=== PATIENT | female | born 1955 | race African-American/Black ===

== ENCOUNTER 2022-08-23 06:24 | Inpatient (IN) | payer OTHER ==
[~2022-08-23] VITALS: Ht 157.5 cm; Wt 54.0 kg
--- NOTE | 2022-08-23 06:27 | NUR ---
P[T. BEING EVALUATED BY DR. SMALL.
[2022-08-23] MEDS ORDERED: MORPHINE SULFATE 4 MG/ML SYR IVP ONE (06:30)
[2022-08-23] MEDS ORDERED: NACL 0.9% 1,000 ML IV ONE ×2 (06:30→09:05)
[2022-08-23] MEDS ORDERED: ONDANSETRON 4 MG/2 ML VIAL IVP ONE (06:30)
[2022-08-23 06:34] VITALS: BP 131/81; PULSE 98; RESP 20; TEMP 98; O2SAT 98
--- NOTE | 2022-08-23 06:36 | NUR ---
PT. BEING TAKEN TO CT IN [facility].
--- NOTE | 2022-08-23 06:37 | NUR ---
PT. PLACED IN BED 09.
[2022-08-23 07:30] LABS: BASOPHILS # (AUTO) 0.1 K/uL (0.00-0.22); EOSINOPHILS # (AUTO) 0.3 K/uL (0-0.4); EOSINOPHILS % (AUTO) 4.3 % (0.0-4.0); HEMATOCRIT 31.4 % (36-48); HEMOGLOBIN 10.1 g/dL (12.0-16.0); LYMPHOCYTES % (AUTO) 12.6 % (20.5-51.1); MEAN CORPUSCULAR HEMOGLOBIN 31 pg (27-31); MEAN CORPUSCULAR HGB CONC 32 g/dL (33-37); MEAN CORPUSCULAR VOLUME 94.9 fL (80-94); MONOCYTES # (AUTO) 0.5 K/uL (0.8-1.0); MONOCYTES % (AUTO) 6.3 % (1.7-9.3); NEUTROPHILS # (AUTO) 5.9 K/uL (1.8-7.7); NEUTROPHILS % (AUTO) 75.8 % (42.2-75.2); PLATELET COUNT (AUTO) 259 K/uL (140-450); RED BLOOD CELL COUNT(AUTO) 3.31 MIL/uL (4.20-5.40); WHITE BLOOD COUNT (AUTO) 7.8 K/uL (4.8-10.8)
[2022-08-23 07:35] LABS: APPEARANCE,URINE CLEAR (CLEAR); BILIRUBIN,URINE NEGATIVE (NEGATIVE); BLOOD, URINE NEGATIVE (NEGATIVE); COLOR,URINE YELLOW (YELLOW); LEUKOCYTE ESTERASE ,URINE NEGATIVE (NEGATIVE); NITRITE, URINE NEGATIVE (NEGATIVE); UGLUCOSE NEGATIVE (NEGATIVE)
[2022-08-23 07:44] LABS: ALBUMIN 3.7 g/dL (3.4-5.0); ANION GAP 12.2 (8-16); CARBON DIOXIDE 27.7 mmol/L (21-32); CREATININE 0.7 mg/dL (0.6-1.3); POTASSIUM 3.9 mmol/L (3.5-5.1); TOTAL BILIRUBIN 0.3 mg/dL (0.0-1.0)
[2022-08-23] MEDS ORDERED: KETOROLAC 30 MG/ML VIAL IVP ONE (07:55)
[2022-08-23] MEDS ORDERED: MAG SULF 2000 MG/WATER PREMIX 50 ML IV PRN (08:00)
[2022-08-23] MEDS ORDERED: AMPICILLIN/SULBACTAM 3 GM in NACL 0.9% 100 ML IV ONE (09:05)
[2022-08-23] MEDS ORDERED: AMPICILLIN/SULBACTAM 3 GM VIAL ONE (09:29)
[2022-08-23] MEDS ORDERED: CHOL200035 PO (10:19)
[2022-08-23] MEDS ORDERED: FLUT1BLS3 INH (10:19)
[2022-08-23] MEDS ORDERED: ACET-2166 PO (10:19)
[2022-08-23] MEDS ORDERED: AMLO-3 PO (10:19)
[2022-08-23] MEDS ORDERED: ALBU90AE IH (10:19)
[2022-08-23] MEDS ORDERED: HYDR-4421 PO (10:19)
[2022-08-23] MEDS ORDERED: HYDROcodone/APAP 5/325 MG 1 TAB TAB PO PRN (11:55)
[2022-08-23] MEDS: NACL 0.9% 1,000 ML IV SCH ×2 (12:24→14:01)
--- NOTE | 2022-08-23 12:42 | NUR ---
Patient will be admitted to care of MD BISI. Admited to [facility]. Will go to room 105A. Belongings list completed. Report to ANIBAL HUMPHREYS.
[2022-08-23 13:00] VITALS: RESP 18; O2SAT 98
[2022-08-23] MEDS ORDERED: LEVOFLOXACIN 750 MG/D5W PREMIX 150 ML IV SCH (13:00)
--- NOTE | 2022-08-23 13:00 | NUR ---
Admitted patient from ED. Alert and oriented x 4. not in any form of distress. Initial assessment done and documented. plan of care discussed.Education on fall prevention provided. Verbalized understanding.
[2022-08-23 16:00] VITALS: BP 121/65; PULSE 56; PULSE 62; RESP 18; TEMP 99; O2SAT 98
[2022-08-23] MEDS ORDERED: DOCUSATE SODIUM 100 MG GELCAP PO PRN (18:30)
[2022-08-23] MEDS ORDERED: LORazepam 2 MG/ML VIAL IVP PRN (18:30)
[2022-08-23] MEDS ORDERED: ZOLPIDEM 10 MG TAB PO PRN (18:30)
[2022-08-23] MEDS ORDERED: POTASSIUM CHLORIDE 10 MEQ TABER PO PRN (18:30)
--- NOTE | 2022-08-23 19:10 | NUR ---
RECEIVED PT FROM MORNING SHIFT NURSE. PT IS AOX4, AMBULATORY, ABLE TO VERBALIZE NEEDS AND ABLE TO FOLLOW COMMANDS. PT IS ON ROOM AIR AND ON NPO DIET. PT HAS IV ON LEFT FOREARM GAUGE 22 RUNNING WITH NS AT 100ML/HR. PT SKIN IS INTACT. PT COMPLAIN OF PAIN ON ABDOMEN. NO S/S OF RESPIRATORY DISTRESS NOTED. ALL SAFETY MEASURES IMPLEMENTED. BED IN LOW POSITION, BED WHEELS ON LOCK AND CALL LIGHT WITHIN REACH.
--- NOTE | 2022-08-23 19:49 | NUR ---
NOTIFIED BISI MORRIS THAT PT WANTS TO HAVE BREATHING TREATMENT. DR. MATHEWS ORDER ALBUTEROL/IMPRATEIPIUM NEBULIZER PRN EVERY 6 HRS FOR WHEEZING. ORDER WAS MADE AND CARRIED OUT.
[2022-08-23] MEDS: MORPHINE SULFATE 2 MG/ML SYR IVP PRN (19:52)
--- NOTE | 2022-08-23 19:52 | NUR ---
PRN MEDICATION WAS GIVEN TO PT DUE TO ABDOMINAL PAIN WITH PAIN SCALE OF 9/10. ALL SAFETY MEASURES IMPLEMENTED. BED IN LOW POSITION, BED WHEELS ON LOCK AND CALL LIGHT WITHIN REACH.
[2022-08-23] MEDS: ONDANSETRON 4 MG/2 ML VIAL IVP PRN (19:53)
[2022-08-23] MEDS ORDERED: ALBUTEROL SULFATE/IPRATROPIU 3 ML SOL IH PRN (19:55)
[2022-08-23 20:00] VITALS: BP 149/71; PULSE 0; PULSE 61; RESP 18; TEMP 98; O2SAT 99
[2022-08-23] MEDS: metroNIDAZOLE 500 MG/NS PREMIX 100 ML IV SCH (20:09)
[2022-08-23] MEDS: hydrALAZINE 25 MG TAB PO SCH (21:12)
--- NOTE | 2022-08-23 21:12 | NUR ---
ALL SCHEDULED AND PRESCRIBED MEDICATION WAS GIVEN TO PT PER MD ORDER. ALL SAFETY MEASURES IMPLEMENTED. BED IN LOW POSITION, BED WHEELS ON LOCK AND CALL LIGHT WITHIN REACH.
--- NOTE | 2022-08-23 22:00 | NUR ---
ASSISTED PT TO GO TO RESTROOM. NO COMPLAIN OF PAIN AT THIS TIME. NO S/S OF RESPIRATORY DISTRESS NOTED. ALL SAFETY MEASURES IMPLEMENTED. BED IN LOW POSITION, BED WHEELS ON LOCK AND CALL LIGHT WITHIN REACH.
--- NOTE | 2022-08-24 | NUR ---
PT IS ON SLEEP. CHEST RISE AND FALL SYMMETRICALLY NOTED. RESPIRATION IS EVEN AND UNLABORED. ALL SAFETY MEASURES IMPLEMENTED. BED WHEELS ON LOCK, BED IN LOW POSITION AND CALL LIGHT WITHIN REACH.
--- NOTE | 2022-08-24 02:00 | NUR ---
CHECKED THE PT STILL ON SLEEP. CHEST RISE AND FALL SYMMETRICALLY NOTED. RESPIRATION IS EVEN AND UNLABORED. ALL SAFETY MEASURES IMPLEMENTED. BED WHEELS ON LOCK, BED IN LOW POSITION AND CALL LIGHT WITHIN REACH.
[2022-08-24] MEDS: metroNIDAZOLE 500 MG/NS PREMIX 100 ML IV SCH ×3 (04:38→21:02)
--- NOTE | 2022-08-24 04:38 | NUR ---
SCHEDULED AND PRESCRIBED MEDICATION WAS GIVEN TO PT PER MD ORDER. ALL SAFETY MEASURES IMPLEMENTED. BED WHEELS ON LOCK, BED IN LOW POSITION AND CALL LIGHT WITHIN REACH.
[2022-08-24] MEDS: ACETAMINOPHEN 325 MG TAB PO PRN (04:45)
--- NOTE | 2022-08-24 04:45 | NUR ---
PRN TYLENOL WAS GIVEN TO PT DUE TO HEADACHE. ALSO, PT SIGNED THE CONSENT FOR CT ABDOMEN/ PELVIS WITH CONTRAST. ALL SAFETY MEASURES IMPLEMENTED. BED WHEELS ON LOCK, BED IN LOW POSITION AND CALL LIGHT WITHIN REACH.
[2022-08-24 06:34] LABS: ANION GAP 12.2 (8-16); CARBON DIOXIDE 25.6 mmol/L (21-32); CREATININE 0.7 mg/dL (0.6-1.3); POTASSIUM 3.8 mmol/L (3.5-5.1)
[2022-08-24] MEDS: NACL 0.9% 1,000 ML IV SCH ×3 (06:36→21:28)
[2022-08-24 06:37] LABS: BASOPHILS # (AUTO) 0.1 K/uL (0.00-0.22); EOSINOPHILS # (AUTO) 0.2 K/uL (0-0.4); EOSINOPHILS % (AUTO) 4.1 % (0.0-4.0); HEMATOCRIT 28.9 % (36-48); HEMOGLOBIN 9.3 g/dL (12.0-16.0); LYMPHOCYTES # (AUTO) 1.4 K/uL (2.5-16.5); LYMPHOCYTES % (AUTO) 22.5 % (20.5-51.1); MEAN CORPUSCULAR HEMOGLOBIN 30 pg (27-31); MEAN CORPUSCULAR HGB CONC 32 g/dL (33-37); MONOCYTES # (AUTO) 0.3 K/uL (0.8-1.0); NEUTROPHILS # (AUTO) 4.1 K/uL (1.8-7.7); NEUTROPHILS % (AUTO) 67.4 % (42.2-75.2); PLATELET COUNT (AUTO) 219 K/uL (140-450); RED BLOOD CELL COUNT(AUTO) 3.05 MIL/uL (4.20-5.40); RED CELL DISTRIBUTION WIDTH 15.9 % (11.6-13.7); WHITE BLOOD COUNT (AUTO) 6.1 K/uL (4.8-10.8)
--- NOTE | 2022-08-24 07:10 | NUR ---
RECEIVED PT FROM ROUSTABOUT FOR CONTINUITY OF CARE. ALERT AND ORIENTED X 4. RESP. EVEN AND UNLABORED. IVF INFUSING WELL. NO C/O PAIN OR DISCOMFORT. CALL LIGHT KEPT WITHIN REACH. WILL CONTINUE TO MONITOR.
--- NOTE | 2022-08-24 07:17 | NUR ---
PT IS STABLE. ENDORSED PT TO MORNING SHIFT NURSE FOR CONTINUITY OF CARE.
[2022-08-24 08:00] VITALS: BP 129/64; PULSE 59; RESP 18; TEMP 98.3; O2SAT 99
--- NOTE | 2022-08-24 09:35 | NUR ---
PATIENT HAS BEEN SCREENED AND CATEGORIZED LOW NUTRITION RISK. PATIENT WILL BE SEEN WITHIN 7 DAYS OF ADMISSION. 08/23/22-08/30/[address]
[2022-08-24] MEDS: CHOLECALCIFEROL 1,000 IU TAB PO SCH (09:42)
[2022-08-24] MEDS: amLODIPine 5 MG TAB PO SCH (10:00)
[2022-08-24] MEDS: hydrALAZINE 25 MG TAB PO SCH ×2 (10:01→21:09)
--- NOTE | 2022-08-24 10:02 | NUR ---
SCHEDULED PO MEDICATIONS GIVEN HEPARIN SQ WAS GIVEN. TOLERATED WELL.
[2022-08-24] MEDS: MORPHINE SULFATE 2 MG/ML SYR IVP PRN ×2 (10:12→15:13)
--- NOTE | 2022-08-24 10:40 | NUR ---
IV INFILTRATED. REINSERTED TO RFA 24G, WITH GOOD BLOOD RETURN. TOLERATED WELL.
[2022-08-24] MEDS: ONDANSETRON 4 MG/2 ML VIAL IVP PRN ×2 (11:27→23:06)
--- NOTE | 2022-08-24 12:50 | NUR ---
INSERTED IV TO YVROSE 20 G, WITH GOOD BLOOD RETURN. TOLERATED WELL.
--- NOTE | 2022-08-24 15:18 | NUR ---
FLAGYL IV AND PRN MORPHINE WAS GIVEN BY ANNE BARNETT. TOLERATED WELL.
[2022-08-24 16:00] VITALS: BP 152/77; PULSE 85; RESP 18; TEMP 99.4; O2SAT 98
--- NOTE | 2022-08-24 16:00 | NUR ---
PT FOR CT W/ IV CONTRAST. INSERTED IV TO LAC 22G, WITH GOOD BLOOD RETURN. TOLERATED WELL. CALLED CT DEPT.
[2022-08-24 16:34] VITALS: O2SAT 96
--- NOTE | 2022-08-24 16:50 | NUR ---
IV TO YVROSE REMOVED. NO BLEEDING NOTED.
--- NOTE | 2022-08-24 17:38 | NUR ---
CT ABDOMEN/PELVIS WITH CONTRAST REPORTED TO DR. MATHEWS, AWAITING FOR RESULT.
--- NOTE | 2022-08-24 17:50 | NUR ---
RECEIVED NEW ORDER FROM DR. MATHEWS, D/C NPO START CLEAR LIQUID DIET. ORDER NOTED AND CARRIED OUT.
--- NOTE | 2022-08-24 18:30 | NUR ---
DINNER SERVED. PT TOLERATED DIET.
[2022-08-24 19:06] VITALS: O2SAT 97
--- NOTE | 2022-08-24 19:39 | NUR ---
BEDSIDE REPORT GIVEN TO SHARE HOLDER FOR CONTINUITY OF CARE. REMAINS STABLE.
[2022-08-24 20:00] VITALS: BP 123/65; PULSE 75; RESP 20; TEMP 98.5; O2SAT 94
--- NOTE | 2022-08-24 23:06 | NUR ---
PT IS GAGGING AND VOMITING, ZOFRAN ADMINISTERED ORDER.
[2022-08-25] MEDS: NACL 0.9% 1,000 ML IV SCH ×2 (01:40→12:09)
[2022-08-25] MEDS: metroNIDAZOLE 500 MG/NS PREMIX 100 ML IV SCH ×3 (05:00→20:24)
[2022-08-25 06:54] LABS: BASOPHILS # (AUTO) 0.1 K/uL (0.00-0.22); BASOPHILS % (AUTO) 1.8 % (0.0-2.0); EOSINOPHILS # (AUTO) 0.2 K/uL (0-0.4); EOSINOPHILS % (AUTO) 3.3 % (0.0-4.0); HEMATOCRIT 28.6 % (36-48); HEMOGLOBIN 9.1 g/dL (12.0-16.0); LYMPHOCYTES # (AUTO) 1.6 K/uL (2.5-16.5); LYMPHOCYTES % (AUTO) 33.4 % (20.5-51.1); MEAN CORPUSCULAR HEMOGLOBIN 31 pg (27-31); MEAN CORPUSCULAR HGB CONC 32 g/dL (33-37); MEAN CORPUSCULAR VOLUME 95.5 fL (80-94); MONOCYTES # (AUTO) 0.4 K/uL (0.8-1.0); MONOCYTES % (AUTO) 7.8 % (1.7-9.3); NEUTROPHILS # (AUTO) 2.6 K/uL (1.8-7.7); NEUTROPHILS % (AUTO) 53.7 % (42.2-75.2); PLATELET COUNT (AUTO) 210 K/uL (140-450); RED BLOOD CELL COUNT(AUTO) 2.99 MIL/uL (4.20-5.40); RED CELL DISTRIBUTION WIDTH 15.5 % (11.6-13.7); WHITE BLOOD COUNT (AUTO) 4.9 K/uL (4.8-10.8)
[2022-08-25 06:56] LABS: ANION GAP 12.6 (8-16); CARBON DIOXIDE 23.7 mmol/L (21-32); CREATININE 0.7 mg/dL (0.6-1.3); POTASSIUM 3.3 mmol/L (3.5-5.1)
--- NOTE | 2022-08-25 07:15 | NUR ---
RECEIVED PT FROM IT TRAINEE FOR CONTINUITY OF CARE. ALERT AND ORIENTED X 4. RESP. EVEN AND UNLABORED. IVF INFUSING WELL. NOT IN ANY DISTRESS NOTED. CALL LIGHT KEPT WITHIN REACH. WILL CONTINUE TO MONITOR.
[2022-08-25] MEDS: ACETAMINOPHEN 325 MG TAB PO PRN (07:38)
[2022-08-25 08:00] VITALS: BP 159/89; PULSE 64; RESP 18; TEMP 98.7; O2SAT 97
[2022-08-25] MEDS: ONDANSETRON 4 MG/2 ML VIAL IVP PRN (08:07)
--- NOTE | 2022-08-25 08:14 | NUR ---
Patient's Plan of Care was discussed and reviewed with INSIDE SALES TRAINER: CARLOS
[2022-08-25] MEDS ORDERED: COMMUNICATION ORDER MC SCH (09:00)
[2022-08-25] MEDS: CHOLECALCIFEROL 1,000 IU TAB PO SCH (09:53)
[2022-08-25] MEDS: amLODIPine 5 MG TAB PO SCH (09:54)
--- NOTE | 2022-08-25 09:54 | NUR ---
SCHEDULED PO MEDICATIONS, HEPARIN SQ AND PRN DUR WAS GIVEN. TOLERATED WELL.
[2022-08-25] MEDS: hydrALAZINE 25 MG TAB PO SCH ×2 (09:55→20:29)
--- NOTE | 2022-08-25 11:19 | NUR ---
LEVOFLOXACIN IV WAS GIVEN BY ARCHIE BARNETT. TOLERATED WELL.
[2022-08-25] MEDS: LEVOFLOXACIN 750 MG/D5W PREMIX 150 ML IV SCH (11:20)
[2022-08-25] MEDS: EENT INH SCH (12:58)
--- NOTE | 2022-08-25 14:43 | NUR ---
FLAGYL IV WAS GIVEN BY ARCHIE BARNETT. TOLERATED WELL.
--- NOTE | 2022-08-25 15:00 | NUR ---
Waste Examiner NEWSPAPER CARRIER conducted this discharge planning assessment with pt who stated she was still greiving the loss of her mother who passed in 2018, Pt has been participating in weekly therapy with a counselor for the past four months for depression. 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 Pt. has a daughter who is listed as an emergency cotact. Pt. did not have an address listed. Stated she resides at [address] [place] [address] [address] [facility] .NEWSPAPER CARRIER will remain available as needed.
[2022-08-25 16:00] VITALS: BP 165/91; PULSE 70; RESP 18; TEMP 96.2; O2SAT 97
[2022-08-25 20:00] VITALS: BP 149/74; PULSE 70; RESP 18; TEMP 99; O2SAT 92; O2SAT 98
[2022-08-26] MEDS: metroNIDAZOLE 500 MG/NS PREMIX 100 ML IV SCH ×2 (05:55→14:49)
[2022-08-26 06:32] LABS: BASOPHILS % (AUTO) 0.9 % (0.0-2.0); EOSINOPHILS # (AUTO) 0.1 K/uL (0-0.4); EOSINOPHILS % (AUTO) 2.5 % (0.0-4.0); HEMATOCRIT 32.4 % (36-48); HEMOGLOBIN 10.5 g/dL (12.0-16.0); LYMPHOCYTES # (AUTO) 1.3 K/uL (2.5-16.5); LYMPHOCYTES % (AUTO) 23.4 % (20.5-51.1); MEAN CORPUSCULAR HEMOGLOBIN 31 pg (27-31); MEAN CORPUSCULAR HGB CONC 32 g/dL (33-37); MEAN CORPUSCULAR VOLUME 94.7 fL (80-94); MONOCYTES # (AUTO) 0.3 K/uL (0.8-1.0); MONOCYTES % (AUTO) 5.9 % (1.7-9.3); NEUTROPHILS # (AUTO) 3.7 K/uL (1.8-7.7); NEUTROPHILS % (AUTO) 67.3 % (42.2-75.2); PLATELET COUNT (AUTO) 241 K/uL (140-450); RED BLOOD CELL COUNT(AUTO) 3.42 MIL/uL (4.20-5.40); WHITE BLOOD COUNT (AUTO) 5.5 K/uL (4.8-10.8)
[2022-08-26 06:35] LABS: ANION GAP 14.5 (8-16); CARBON DIOXIDE 24.9 mmol/L (21-32); CREATININE 0.7 mg/dL (0.6-1.3); POTASSIUM 3.4 mmol/L (3.5-5.1)
--- NOTE | 2022-08-26 07:07 | NUR ---
receive the patient from the material handler 1st shift rn in rm 105A aox4 with admitting diagnosis of diverticulitis . no sign and symptoms of respiratory distress . no complain of pain at this time . will continue to monitor
[2022-08-26 07:49] VITALS: PULSE 68; RESP 20; O2SAT 100
[2022-08-26] MEDS ORDERED: POTASSIUM CHLORIDE 10 MEQ TABER PO SCH (08:06)
[2022-08-26] MEDS: CHOLECALCIFEROL 1,000 IU TAB PO SCH (09:28)
[2022-08-26] MEDS: hydrALAZINE 25 MG TAB PO SCH (09:29)
[2022-08-26] MEDS: NACL 0.9% 1,000 ML IV SCH (09:31)
[2022-08-26] MEDS: amLODIPine 5 MG TAB PO SCH (09:34)
[2022-08-26] MEDS: EENT INH SCH (09:36)
[2022-08-26] MEDS: LEVOFLOXACIN 750 MG/D5W PREMIX 150 ML IV SCH (10:04)
[2022-08-26] MEDS ORDERED: AMOX-1230 PO (11:10)
[2022-08-26] MEDS ORDERED: METR-520 PO (11:28)
[2022-08-26] MEDS ORDERED: CIPR500T4 PO (11:28)
[2022-08-26] MEDS: ACETAMINOPHEN 325 MG TAB PO PRN (14:53)
[2022-08-26 15:10] VITALS: BP 125/85; PULSE 62; RESP 20; TEMP 98.7
--- NOTE | 2022-08-26 16:05 | NUR ---
made some discharge teaching to the patient . discontinue the intravenous port , identification band , no sign and symptoms of respiratory distress , no complain of pain . discharge to the lobby thru a wheelchair to a waiting private car with the daughter
== END 2022-08-26 16:13 | disposition home or self-care (01) | DRG 392 ==
LOC: MED 06:24 → MTU 11:24 → OBSVTOIN 12:15
PROVIDERS: ADMIT Family Medicine; ATTEND Family Medicine
DX: K57.32 Diverticulitis of large intestine without perforation or abscess without bleeding (principal); D64.9 Anemia, unspecified; I10 Essential (primary) hypertension; Z20.822 Contact with and (suspected) exposure to COVID-19; K59.00 Constipation, unspecified; J44.9 Chronic obstructive pulmonary disease, unspecified; Z88.8 Allergy status to other drugs, medicaments and biological substances; Z79.899 Other long term (current) drug therapy
CPT/HCPCS: 36415; 80048; 80053; 81003; 83036; 83690; 83735; 85025; 87040; 87081; 96361; 96365; 96375; 99285; G0378; J0295; J1644; J1885; J1956; J2270; J2405; J3490; Q9967

== ENCOUNTER 2022-10-25 12:12 | Emergency (ER) | payer OTHER ==
[~2022-10-25] VITALS: Ht 157.5 cm; Wt 70.8 kg
[~2022-10-25 12:12] MED LIST: ACET-2166 PO; ALBU90AE IH; AMLO-3 PO; CHOL200035 PO; CIPR500T4 PO; FLUT1BLS3 INH; HYDR-4421 PO; METR-520 PO
[2022-10-25 12:20] VITALS: BP 136/58; PULSE 62; RESP 16; TEMP 98; O2SAT 99
[2022-10-25 12:43] LABS: APPEARANCE,URINE CLEAR (CLEAR); BILIRUBIN,URINE NEGATIVE (NEGATIVE); BLOOD, URINE NEGATIVE (NEGATIVE); COLOR,URINE YELLOW (YELLOW); LEUKOCYTE ESTERASE ,URINE NEGATIVE (NEGATIVE); NITRITE, URINE NEGATIVE (NEGATIVE); PROTEIN,URINE NEGATIVE (NEGATIVE); UGLUCOSE NEGATIVE (NEGATIVE); UROBILINOGEN,URINE 0.2 EU/dL (0.2 - 1)
[2022-10-25 13:58] LABS: BASOPHILS % (AUTO) 0.5 % (0.0-2.0); EOSINOPHILS # (AUTO) 0.3 K/uL (0-0.4); EOSINOPHILS % (AUTO) 3.9 % (0.0-4.0); HEMATOCRIT 32.8 % (36-48); HEMOGLOBIN 10.5 g/dL (12.0-16.0); LYMPHOCYTES # (AUTO) 1.8 K/uL (2.5-16.5); LYMPHOCYTES % (AUTO) 23.8 % (20.5-51.1); MEAN CORPUSCULAR HEMOGLOBIN 31 pg (27-31); MEAN CORPUSCULAR HGB CONC 32 g/dL (33-37); MEAN CORPUSCULAR VOLUME 96.1 fL (80-94); MONOCYTES # (AUTO) 0.5 K/uL (0.8-1.0); MONOCYTES % (AUTO) 6.8 % (1.7-9.3); PLATELET COUNT (AUTO) 274 K/uL (140-450); RED BLOOD CELL COUNT(AUTO) 3.42 MIL/uL (4.20-5.40); RED CELL DISTRIBUTION WIDTH 15.2 % (11.6-13.7); WHITE BLOOD COUNT (AUTO) 7.7 K/uL (4.8-10.8)
[2022-10-25 14:01] LABS: ALBUMIN 3.8 g/dL (3.4-5.0); CALCIUM 9.9 mg/dL (8.5-10.1); CREATININE 0.9 mg/dL (0.6-1.3); TOTAL BILIRUBIN 0.3 mg/dL (0.0-1.0); TOTAL PROTEIN, SERUM 7.8 g/dL (6.4-8.2)
[2022-10-25] MEDS ORDERED: ACETAMINOPHEN 325 MG TAB PO ONE (14:25)
[2022-10-25] MEDS ORDERED: KETOROLAC 15 MG/ML VIAL IM ONE (14:25)
[2022-10-25 16:24] LABS: CARBON DIOXIDE 29.4 mmol/L (21-32)
[2022-10-25] MEDS ORDERED: BEN10 PO (17:40)
[2022-10-25] MEDS ORDERED: POLY17PD72 PO (17:40)
[2022-10-25 19:30] LABS: POTASSIUM 4.9 mmol/L (3.5-5.1)
[2022-10-25 19:31] LABS: ANION GAP 16.5 (8-16)
[2022-10-25] MEDS ORDERED: HYDROcodone/APAP 5/325 MG 1 TAB TAB PO ONE (21:30)
[2022-10-25 21:41] VITALS: BP 147/76; PULSE 60; RESP 10; TEMP 36.66960; O2SAT 98
== END 2022-10-25 21:41 | disposition home or self-care (01) ==
LOC: MED 12:12
DX: R10.84 Generalized abdominal pain (principal); J45.909 Unspecified asthma, uncomplicated; J44.9 Chronic obstructive pulmonary disease, unspecified; I10 Essential (primary) hypertension; Z79.899 Other long term (current) drug therapy
CPT/HCPCS: 36415; 74176; 80053; 81003; 83690; 85025; 96372; 99285; J1885

== ENCOUNTER 2022-12-10 08:19 | Emergency (ER) | payer OTHER ==
[~2022-12-10] VITALS: Ht 157.5 cm; Wt 60.3 kg
[~2022-12-10 08:19] MED LIST changes: +BEN10 PO; +POLY17PD72 PO
[2022-12-10 08:28] VITALS: BP 152/83; PULSE 68; RESP 18; TEMP 97.9; O2SAT 99
[2022-12-10] MEDS ORDERED: CLON0.5T PO (09:55)
[2022-12-10] MEDS ORDERED: NAPR-1704 PO (09:55)
[2022-12-10] MEDS ORDERED: TRAM50TA3 PO (09:55)
[2022-12-10 10:17] VITALS: BP 152/83; PULSE 68; RESP 18; TEMP 97.9; O2SAT 99
== END 2022-12-10 10:19 | disposition home or self-care (01) ==
LOC: MED 08:19
DX: S16.1XXA Strain of muscle, fascia and tendon at neck level, initial encounter (principal); J45.909 Unspecified asthma, uncomplicated; J44.9 Chronic obstructive pulmonary disease, unspecified; I10 Essential (primary) hypertension; Z88.8 Allergy status to other drugs, medicaments and biological substances; Z79.899 Other long term (current) drug therapy; X58.XXXA Exposure to other specified factors, initial encounter; Y93.89 Activity, other specified; Y92.89 Other specified places as the place of occurrence of the external cause; Y99.8 Other external cause status
CPT/HCPCS: 72040; 99283

== ENCOUNTER 2023-02-10 09:55 | Emergency (ER) | payer OTHER ==
[~2023-02-10] VITALS: Ht 152.4 cm; Wt 59.0 kg
[~2023-02-10 09:55] MED LIST changes: +CLON0.5T PO; +NAPR-1704 PO; +TRAM50TA3 PO
[2023-02-10 10:13] VITALS: BP 163/90; PULSE 59; RESP 18; TEMP 97; O2SAT 98
[2023-02-10] MEDS ORDERED: LIDOCAINE 5% 1 EA PATCH TP ONE (12:25)
[2023-02-10] MEDS ORDERED: KETOROLAC 30 MG/ML VIAL IM ONE (12:25)
[2023-02-10] MEDS ORDERED: CYCL-711 PO (13:44)
[2023-02-10] MEDS ORDERED: LIDO1ADH19 TP (13:44)
[2023-02-10] MEDS ORDERED: NAPR-1704 PO (13:44)
[2023-02-10 13:54] VITALS: BP 134/84; PULSE 59; RESP 18; TEMP 97; O2SAT 98
== END 2023-02-10 13:55 | disposition home or self-care (01) ==
LOC: MED 09:55
DX: M50.31 Other cervical disc degeneration, high cervical region (principal); J44.9 Chronic obstructive pulmonary disease, unspecified; I10 Essential (primary) hypertension; M19.90 Unspecified osteoarthritis, unspecified site; Z79.899 Other long term (current) drug therapy; Z79.1 Long term (current) use of non-steroidal anti-inflammatories (NSAID); Z79.2 Long term (current) use of antibiotics; Z88.8 Allergy status to other drugs, medicaments and biological substances
CPT/HCPCS: 20553; 72050; 96372; 99284; J1885

== ENCOUNTER 2023-03-21 08:41 | Inpatient (IN) | payer BC, MEDICAID ==
[2023-03-21] VITALS (7 sets, daily range): BP systolic 151–173; BP diastolic 80–95; PULSE 68–98; RESP 16–20; TEMP 97.9–98.9; O2SAT 95–99
[~2023-03-21] VITALS: Ht 157.5 cm; Wt 59.0 kg
[~2023-03-21 08:41] MED LIST changes: +CYCL-711 PO; -HYDR-4421 PO; +LIDO1ADH19 TP; +[UNRECOGNIZED DRUG - CODE] PO
[2023-03-21] MEDS ORDERED: ALBUTEROL SULFATE/IPRATROPIU 3 ML SOL IH ONE ×2 (09:05→11:40)
[2023-03-21] MEDS ORDERED: methylPREDNISolone SS 125 MG/2 ML VIAL IVP ONE (09:05)
[2023-03-21 09:25] LABS: BASOPHILS # (AUTO) 0.1 K/uL (0.00-0.22); BASOPHILS % (AUTO) 0.9 % (0.0-2.0); EOSINOPHILS # (AUTO) 0.1 K/uL (0-0.4); HEMATOCRIT 29.5 % (36-48); HEMOGLOBIN 9.5 g/dL (12.0-16.0); LYMPHOCYTES # (AUTO) 1.2 K/uL (2.5-16.5); LYMPHOCYTES % (AUTO) 20.4 % (20.5-51.1); MEAN CORPUSCULAR HEMOGLOBIN 30 pg (27-31); MEAN CORPUSCULAR HGB CONC 32 g/dL (33-37); MEAN CORPUSCULAR VOLUME 94.2 fL (80-94); MONOCYTES # (AUTO) 0.4 K/uL (0.8-1.0); MONOCYTES % (AUTO) 7.2 % (1.7-9.3); NEUTROPHILS # (AUTO) 4.2 K/uL (1.8-7.7); NEUTROPHILS % (AUTO) 69.5 % (42.2-75.2); PLATELET COUNT (AUTO) 286 K/uL (140-450); RED BLOOD CELL COUNT(AUTO) 3.13 MIL/uL (4.20-5.40); RED CELL DISTRIBUTION WIDTH 14.7 % (11.6-13.7)
[2023-03-21] MEDS ORDERED: AZITHROMYCIN 500 MG in DEXTROSE 5% 250 ML IV ONE (09:40)
[2023-03-21] MEDS ORDERED: cefTRIAXone 1,000 MG VIAL ONE ×2 (09:44→09:48)
[2023-03-21] MEDS ORDERED: AZITHROMYCIN 500 MG INJ VIAL IV ONE (09:44)
[2023-03-21 09:45] LABS: ALBUMIN 3.3 g/dL (3.4-5.0); ANION GAP 11.5 (8-16); CALCIUM 8.7 mg/dL (8.5-10.1); CARBON DIOXIDE 26.9 mmol/L (21-32); CREATININE 1.3 mg/dL (0.6-1.3); POTASSIUM 3.4 mmol/L (3.5-5.1); TOTAL BILIRUBIN 0.1 mg/dL (0.0-1.0); TOTAL PROTEIN, SERUM 8.1 g/dL (6.4-8.2)
[2023-03-21 10:07] LABS: FLU A ANTIGEN negative (NEGATIVE); FLU B ANTIGEN NEGATIVE (NEGATIVE); RSV NEGATIVE (NEGATIVE)
[2023-03-21] MEDS ORDERED: ACETAMINOPHEN EXTRA STRENGTH 500 MG TAB PO ONE (12:55)
[2023-03-21] MEDS ORDERED: LIDOCAINE 5% 1 EA PATCH TP ONE (12:55)
[2023-03-21] MEDS ORDERED: ONDANSETRON 4 MG/2 ML VIAL IVP PRN (14:05)
[2023-03-21] MEDS ORDERED: HYDR-1100 PO (14:39)
[2023-03-21] MEDS ORDERED: NITR0.4T94 SL (14:39)
[2023-03-21] MEDS ORDERED: ALBUTEROL (14:39)
[2023-03-21] MEDS ORDERED: LEVOFLOXACIN 500 MG/D5W PREMIX 100 ML IV SCH (15:00)
[2023-03-21] MEDS ORDERED: hydrALAZINE 25 MG TAB PO PRN (17:25)
[2023-03-21] MEDS: methylPREDNISolone SS 40 MG/ML VIAL IVP SCH (17:58)
[2023-03-21] MEDS ORDERED: methylPREDNISolone SS 40 MG in WATER STERILE 1 ML IV SCH (18:00)
[2023-03-21] MEDS: ACETAMINOPHEN 325 MG TAB PO PRN (18:11)
[2023-03-21] MEDS: hydrALAZINE 25 MG TAB PO SCH (21:28)
[2023-03-21] MEDS: MORPHINE SULFATE 2 MG/ML SYR IVP PRN (21:32)
[2023-03-22] MEDS: methylPREDNISolone SS 40 MG/ML VIAL IVP SCH ×4 (00:29→18:05)
[2023-03-22 04:00] VITALS: BP 148/75; PULSE 60; RESP 18; TEMP 97.3; O2SAT 98
[2023-03-22 07:03] LABS: ALBUMIN 3.4 g/dL (3.4-5.0); ANION GAP 14.4 (8-16); CALCIUM 9.6 mg/dL (8.5-10.1); CARBON DIOXIDE 23.7 mmol/L (21-32); CREATININE 0.9 mg/dL (0.6-1.3); MAGNESIUM 2.2 mg/dL (1.8-2.4); POTASSIUM 4.1 mmol/L (3.5-5.1); TOTAL BILIRUBIN 0.2 mg/dL (0.0-1.0)
[2023-03-22 07:48] VITALS: PULSE 56; RESP 20; O2SAT 95
[2023-03-22] MEDS: IPRATROPIUM 0.02% 0.5 MG/2.5 ML NEBU INH SCH ×3 (07:48→19:00)
[2023-03-22] MEDS: ALBUTEROL 0.083% 2.5 MG/3 ML NEBU INH PRN ×2 (07:48→13:29)
[2023-03-22 08:00] VITALS: BP 167/87; PULSE 60; PULSE 63; RESP 17; TEMP 98.8; O2SAT 96
[2023-03-22 08:01] LABS: BASOPHILS % (AUTO) 0.2 % (0.0-2.0); HEMOGLOBIN 10.1 g/dL (12.0-16.0); LYMPHOCYTES # (AUTO) 1.1 K/uL (2.5-16.5); MEAN CORPUSCULAR HEMOGLOBIN 31 pg (27-31); MEAN CORPUSCULAR HGB CONC 32 g/dL (33-37); MEAN CORPUSCULAR VOLUME 94.1 fL (80-94); MONOCYTES # (AUTO) 0.2 K/uL (0.8-1.0); MONOCYTES % (AUTO) 2.2 % (1.7-9.3); NEUTROPHILS # (AUTO) 6.3 K/uL (1.8-7.7); NEUTROPHILS % (AUTO) 83.6 % (42.2-75.2); PLATELET COUNT (AUTO) 322 K/uL (140-450); RED CELL DISTRIBUTION WIDTH 14.8 % (11.6-13.7); WHITE BLOOD COUNT (AUTO) 7.6 K/uL (4.8-10.8)
[2023-03-22] MEDS: hydrALAZINE 25 MG TAB PO SCH ×4 (08:36→21:17)
[2023-03-22] MEDS: ACETAMINOPHEN 325 MG TAB PO PRN (08:40)
[2023-03-22] MEDS: MORPHINE SULFATE 2 MG/ML SYR IVP PRN ×2 (10:25→21:18)
[2023-03-22] MEDS ORDERED: CALCIUM CARBONATE 500 MG TAB.CHEW PO PRN (12:45)
[2023-03-22 13:29] VITALS: PULSE 68; RESP 20; O2SAT 98
[2023-03-22] MEDS ORDERED: LEVOFLOXACIN 500 MG/D5W PREMIX 100 ML IV SCH (15:00)
[2023-03-22 16:00] VITALS: BP 153/84; PULSE 70; RESP 17; TEMP 98.3; O2SAT 98
[2023-03-22 20:00] VITALS: BP 144/80; PULSE 72; RESP 18; RESP 20; TEMP 98.6; O2SAT 96; O2SAT 98
[2023-03-22] MEDS: DOCUSATE SODIUM 100 MG GELCAP PO SCH (21:16)
[2023-03-23 00:39] VITALS: PULSE 61; RESP 18; O2SAT 96
[2023-03-23] MEDS: IPRATROPIUM 0.02% 0.5 MG/2.5 ML NEBU INH SCH ×2 (00:39→07:51)
[2023-03-23] MEDS: methylPREDNISolone SS 40 MG/ML VIAL IVP SCH ×2 (00:56→12:23)
[2023-03-23 04:00] VITALS: BP 149/77; PULSE 57; RESP 18; TEMP 97.3; O2SAT 98
[2023-03-23 07:53] VITALS: PULSE 69; RESP 16; O2SAT 97
[2023-03-23] MEDS: ALBUTEROL 0.083% 2.5 MG/3 ML NEBU INH PRN (07:53)
[2023-03-23 08:00] VITALS: PULSE 84; RESP 18; RESP 20; O2SAT 94
[2023-03-23 08:33] VITALS: BP 139/100; PULSE 84; RESP 18; TEMP 97.6; O2SAT 94
[2023-03-23] MEDS: hydrALAZINE 25 MG TAB PO SCH ×2 (08:50→12:23)
[2023-03-23] MEDS: DOCUSATE SODIUM 100 MG GELCAP PO SCH (08:51)
[2023-03-23] MEDS: MORPHINE SULFATE 2 MG/ML SYR IVP PRN (14:05)
[2023-03-23] MEDS ORDERED: PRED20TA5 PO (14:10)
[2023-03-23] MEDS ORDERED: LEVOFLOXACIN 250 MG/D5 PREMIX 50 ML IV SCH (15:00)
== END 2023-03-23 16:15 | disposition home or self-care (01) | DRG 189 ==
LOC: MED 08:41 → MMU 14:07 → MTU 15:43
PROVIDERS: ADMIT Hospitalist; ATTEND Hospitalist
DX: J96.01 Acute respiratory failure with hypoxia (principal); J44.1 Chronic obstructive pulmonary disease with (acute) exacerbation; J06.9 Acute upper respiratory infection, unspecified; J43.9 Emphysema, unspecified; K46.9 Unspecified abdominal hernia without obstruction or gangrene; I10 Essential (primary) hypertension; E78.5 Hyperlipidemia, unspecified; F17.200 Nicotine dependence, unspecified, uncomplicated; Z20.822 Contact with and (suspected) exposure to COVID-19; Z88.8 Allergy status to other drugs, medicaments and biological substances; Z79.899 Other long term (current) drug therapy; Z79.1 Long term (current) use of non-steroidal anti-inflammatories (NSAID)
CPT/HCPCS: 36415; 36600; 71045; 80053; 82803; 83735; 83880; 84484; 85025; 87081; 87420; 94640; 96365; 96367; 96375; 99285; J0456; J0696; J1956; J2270; J2920; J2930; J7613; J7644; Q0092

== ENCOUNTER 2023-05-21 12:35 | Emergency (ER) | payer BC, MEDICAID ==
[~2023-05-21] VITALS: Ht 157.5 cm; Wt 59.0 kg
[~2023-05-21 12:35] MED LIST changes: -AMLO-3 PO; -BEN10 PO; -CIPR500T4 PO; -CLON0.5T PO; -CYCL-711 PO; +HYDR-1100 PO; -LIDO1ADH19 TP; -METR-520 PO; -NAPR-1704 PO; +NITR0.4T94 SL; +PRED20TA5 PO; -TRAM50TA3 PO; -[UNRECOGNIZED DRUG - CODE] PO
[2023-05-21 13:00] VITALS: BP 138/78; PULSE 65; RESP 16; TEMP 98; O2SAT 100
[2023-05-21] MEDS: NACL 0.9% 1,000 ML IV SCH (14:04)
[2023-05-21] MEDS: KETOROLAC 30 MG/ML VIAL IVP ONE (14:05)
[2023-05-21 14:25] LABS: BASOPHILS # (AUTO) 0.1 K/uL (0.00-0.22); BASOPHILS % (AUTO) 0.8 % (0.0-2.0); EOSINOPHILS # (AUTO) 0.2 K/uL (0-0.4); EOSINOPHILS % (AUTO) 3.3 % (0.0-4.0); HEMATOCRIT 31.3 % (36-48); HEMOGLOBIN 10.3 g/dL (12.0-16.0); LYMPHOCYTES # (AUTO) 1.6 K/uL (2.5-16.5); LYMPHOCYTES % (AUTO) 21.5 % (20.5-51.1); MEAN CORPUSCULAR HEMOGLOBIN 32 pg (27-31); MEAN CORPUSCULAR HGB CONC 33 g/dL (33-37); MEAN CORPUSCULAR VOLUME 96.7 fL (80-94); MONOCYTES # (AUTO) 0.5 K/uL (0.8-1.0); MONOCYTES % (AUTO) 6.4 % (1.7-9.3); PLATELET COUNT (AUTO) 237 K/uL (140-450); RED BLOOD CELL COUNT(AUTO) 3.24 MIL/uL (4.20-5.40); RED CELL DISTRIBUTION WIDTH 16.3 % (11.6-13.7); WHITE BLOOD COUNT (AUTO) 7.3 K/uL (4.8-10.8)
[2023-05-21 14:41] LABS: ANION GAP 11.4 (8-16); CALCIUM 9.3 mg/dL (8.5-10.1); CARBON DIOXIDE 28.4 mmol/L (21-32); CREATININE 0.7 mg/dL (0.6-1.3); POTASSIUM 3.8 mmol/L (3.5-5.1)
[2023-05-21 14:45] LABS: ALBUMIN 3.7 g/dL (3.4-5.0); BILIRUBIN,DIRECT 0.1 mg/dL (0.0-0.3); TOTAL BILIRUBIN 0.3 mg/dL (0.0-1.0); TOTAL PROTEIN, SERUM 7.2 g/dL (6.4-8.2)
[2023-05-21] MEDS: ONDANSETRON 4 MG/2 ML VIAL IVP ONE (14:58)
[2023-05-21] MEDS: MORPHINE SULFATE 4 MG/ML SYR IVP ONE (14:58)
[2023-05-21] MEDS ORDERED: CIPR500T4 PO (15:14)
[2023-05-21] MEDS ORDERED: METR-435 PO (15:14)
[2023-05-21] MEDS ORDERED: IBUP-2213 PO (15:14)
[2023-05-21 16:03] VITALS: BP 138/78; PULSE 65; RESP 16; TEMP 98; O2SAT 100
== END 2023-05-21 16:03 | disposition home or self-care (01) ==
LOC: MED 12:35
DX: K57.32 Diverticulitis of large intestine without perforation or abscess without bleeding (principal); J44.9 Chronic obstructive pulmonary disease, unspecified; I10 Essential (primary) hypertension; Z79.899 Other long term (current) drug therapy; Z88.8 Allergy status to other drugs, medicaments and biological substances
CPT/HCPCS: 36415; 74176; 80048; 80076; 81002; 83690; 85025; 96361; 96374; 96375; 99285; J1885; J2270; J2405; J7030